=== PATIENT | female | born 1995 | race Caucasian/White ===

== ENCOUNTER → 2017-11-06 | Outpatient (CLI) | payer OTHER ==
[~2017-11-06] MED LIST: OXYC-865 PO; SULF-198 PO
--- NOTE | 2017-11-06 12:00 | RADIOLOGY IMAGING REPORT ---
[place] [facility] [place] NAME: Cassie Blanco : 1995 MR: [id number] V: [id number] EXAM DATE: ORDERING PHYSICIAN: LUCIE GARCIA TECHNOLOGIST: Location: [facility] Patient: Cassie Blanco : 1995 Visit/Account:[id number] Date of Sevice: 11/06/2017 ABDOMEN PELVIS ESWL CYSTO W/O History: Evaluate renal calculi.. Technique: CT images were obtained through the abdomen and pelvis without the injection of intravenou s contrast. Coronal and sagittal reformations were then created. One of the following dose optimization techniques was utilized in the performance of this exam: Autom ated exposure control; adjustment of the mA and/or kV according to the patient's size; or use of an i terative reconstruction technique. Specific details can be referenced in the facility's radiology C T exam operational policy. Comparison study: CT scans of an 2016. Findings: Lung bases: Negative Hepatobiliary: No liver mass is seen, but the noncontrast study limits evaluation of the liver. The g allbladder so far as visualized is unremarkable and there is no gallstone disease. Spleen: Negative. Adrenals: Negative Pancreas: Negative. Kidneys/genitourinary/retroperitoneum: There is a large calculus in the lower pole the left kidney th at is not associated with obstruction at this time. It measures 17 x 11 mm in size which is only sli ghtly larger than was noted on the previous study but this could be related to technique of the exami [facility]. There are no calculi in the right kidney.. Bowel/peritoneum/mesentery: There are no dilated loops of large or small bowel to suggest ileus or ob struction. There is a normal appendix in the right lower quadrant. Pelvic/genital urinary: In the pelvis there is a small amount of free fluid. The uterus is unremarka ble. Neither the right or left ovary is well seen. Vessels: Negative. Lymph node: Negative. Body wall/bones: Negative IMPRESSION: 1. Nonobstructing large calculus in the lower pole the left kidney measuring 17 x 11 mm on today's e xam. This is slightly larger than was noted on the previous study of January 07, 2017 but the diffe rence could be related to technique of the examination or measuring variation. 2. There is a small amount of fluid in the pelvis that is slightly more than was noted on the previo us study. Neither the right or left ovary can be seen. Report Dictated By: Sami Rey MD at 11/06/2017 11:49 AM Report E-Signed By: Sami Rey MD at 11/06/2017 11:55 AM WSN:[email or web address]
== END ==
LOC: CT 10-08 01:27
PROVIDERS: ATTEND Urology
DX: N20.0 Calculus of kidney (principal)
CPT/HCPCS: 74176

== ENCOUNTER → 2017-11-07 | Outpatient (REF) | payer OTHER | LOC: ZZSENDIN 14:07 | PROVIDERS: ATTEND Urology | DX: N39.0 Urinary tract infection, site not specified (principal); N20.0 Calculus of kidney; B96.20 Unspecified Escherichia coli [E. coli] as the cause of diseases classified elsewhere | CPT/HCPCS: 87077; 87088; 87186 ==

== ENCOUNTER → 2018-03-13 | Outpatient (CLI) | payer BC | LOC: LAB 07:39 | PROVIDERS: ATTEND Urology | DX: N20.0 Calculus of kidney (principal); E72.01 Cystinuria | CPT/HCPCS: 36415; 82040; 82247; 82310; 82374; 82435; 82565; 82947; 84075; 84132; 84155; 84295; 84450; 84460; 84520 ==

== ENCOUNTER → 2018-03-13 | Outpatient (REF) | payer BC | LOC: ZZSENDIN 13:45 | PROVIDERS: ATTEND Urology | DX: N39.0 Urinary tract infection, site not specified (principal); B96.20 Unspecified Escherichia coli [E. coli] as the cause of diseases classified elsewhere | CPT/HCPCS: 87077; 87088; 87186 ==